=== PATIENT | female | born 1945 | race Caucasian/White ===

== ENCOUNTER 2018-07-13 18:56 | Inpatient (IN) | payer OTHER ==
[~2018-07-13] VITALS: Ht 152.4 cm; Wt 56.9 kg
[2018-07-13 19:37] LABS: BASOPHIL % 0.8 % (0-2); PLATELET COUNT 284 x10^3mcL (130-400)
[2018-07-13 19:39] LABS: RED CELL DISTRIBUTION WIDTH 14.6 % (11.5-14.5)
[2018-07-13 20:06] LABS: CALCIUM 9.2 mg/dL (8.5-10.1); CARBON DIOXIDE 24.6 mmol/L (21-32); CHLORIDE SERUM 105 mmol/L (98-107); CREATININE SERUM 0.9 mg/dL (0.6-1.0); GLUCOSE SERUM 90 mg/dL (74-106); SODIUM SERUM 142 mmol/L (136-145)
[2018-07-13 20:14] LABS: ALBUMIN 3.6 g/dL (3.4-5.0); ALKALINE PHOSPHATASE 74 U/L (46-116); ALT/SGPT 16 U/L (14-59); AMYLASE 44 U/L (25-115); AST/SGOT 21 U/L (15-37); BILIRUBIN TOTAL 0.33 mg/dL (0.20-1.00); CHOLESTEROL 200 mg/dL (<200); LIPASE 288 IU/L (73-393); MAGNESIUM 1.9 mg/dL (1.8-2.4); T4(THYROXINE) 10.8 ug/dL (4.7-13.3); TOTAL PROTEIN, SERUM 7.4 g/dL (6.4-8.2)
[2018-07-13 20:17] LABS: microscopic required? YES; urine erythrocyte NEGATIVE (NEGATIVE)
[2018-07-13 20:24] LABS: AMPHETAMINE QUAL UR NONE DETECTED (See below)
[2018-07-13] MEDS ORDERED: TRAZODONE50 M1 PO (21:07)
[2018-07-13] MEDS ORDERED: LEXAPRO10 MG PO (21:08)
[2018-07-13] MEDS ORDERED: LISINOPRIL40 MG PO (21:08)
[2018-07-13 22:30] LABS: PHOSPHOROUS 3.8 mg/dL (2.5-4.9)
[2018-07-13 22:31] LABS: CHOLESTEROL/HDL RATIO 3.3
[2018-07-13 22:39] LABS: T3 TOTAL 1.07 ng/mL
[2018-07-13 22:53] LABS: FREE T4 1.16 ng/dL (0.76-1.46); FREE THYROXINE INDEX 3.9 ug/dL (1.4-4.5); T4(THYROXINE) 11.5 ug/dL (4.7-13.3)
[2018-07-13 23:30] VITALS: BP 184/57
[2018-07-14 04:38] LABS: BASOPHIL % 0.6 % (0-2); PLATELET COUNT 201 x10^3mcL (130-400); RED CELL DISTRIBUTION WIDTH 14.4 % (11.5-14.5)
[2018-07-14 04:51] LABS: CALCIUM 8.2 mg/dL (8.5-10.1); CARBON DIOXIDE 23.1 mmol/L (21-32); CHLORIDE SERUM 113 mmol/L (98-107); CREATININE SERUM 0.7 mg/dL (0.6-1.0); GLUCOSE SERUM 83 mg/dL (74-106); MAGNESIUM 1.6 mg/dL (1.8-2.4); PHOSPHOROUS 3.3 mg/dL (2.5-4.9); POTASSIUM SERUM 3.7 mmol/L (3.5-5.1); SODIUM SERUM 141 mmol/L (136-145)
[2018-07-14 05:41] VITALS: BP 138/65
[2018-07-14 10:02] VITALS: BP 175/55
[2018-07-14 13:00] VITALS: Ht 152.4 cm; Wt 56.9 kg
[2018-07-14 17:46] VITALS: BP 165/54
[2018-07-14 21:09] VITALS: BP 153/42
[2018-07-15 05:51] VITALS: BP 159/54
[2018-07-15 06:50] LABS: CALCIUM 8.3 mg/dL (8.5-10.1); CARBON DIOXIDE 23.2 mmol/L (21-32); CHLORIDE SERUM 113 mmol/L (98-107); CREATININE SERUM 0.8 mg/dL (0.6-1.0); GLUCOSE SERUM 86 mg/dL (74-106); POTASSIUM SERUM 3.3 mmol/L (3.5-5.1); SODIUM SERUM 144 mmol/L (136-145)
[2018-07-15 07:10] LABS: BASOPHIL % 0.5 % (0-2); PLATELET COUNT 214 x10^3mcL (130-400)
[2018-07-15 08:27] VITALS: BP 168/66
[2018-07-15 22:20] VITALS: BP 195/57
[2018-07-16] VITALS: BP 158/50
[2018-07-16 05:36] VITALS: BP 176/47
[2018-07-16 06:15] LABS: BASOPHIL % 0.7 % (0-2); PLATELET COUNT 203 x10^3mcL (130-400)
[2018-07-16 06:21] LABS: RED CELL DISTRIBUTION WIDTH 14.9 % (11.5-14.5)
[2018-07-16 06:23] LABS: CALCIUM 8.5 mg/dL (8.5-10.1); CARBON DIOXIDE 22.6 mmol/L (21-32); CHLORIDE SERUM 112 mmol/L (98-107); CREATININE SERUM 0.8 mg/dL (0.6-1.0); GLUCOSE SERUM 98 mg/dL (74-106); POTASSIUM SERUM 3.8 mmol/L (3.5-5.1); SODIUM SERUM 143 mmol/L (136-145)
[2018-07-16 07:22] VITALS: BP 187/49
[2018-07-16 08:51] VITALS: BP 178/64
[2018-07-16 10:40] VITALS: BP 161/61
[2018-07-16 14:51] VITALS: BP 120/57
== END 2018-07-16 18:26 | DRG 73 ==
LOC: ED 18:56 → MU 22:02
PROVIDERS: Emergency Medicine; Family Medicine
DX: G90.8 Other disorders of autonomic nervous system (principal); N17.0 Acute kidney failure with tubular necrosis; G93.41 Metabolic encephalopathy; F33.2 Major depressive disorder, recurrent severe without psychotic features; E87.6 Hypokalemia; I10 Essential (primary) hypertension; R80.9 Proteinuria, unspecified; Z68.27 Body mass index [BMI] 27.0-27.9, adult
CPT/HCPCS: 82962; 84439; 97110-GP; 97116-GP; 97530-GP; G0480; J3490; J7030; Q0092